=== PATIENT | male | born 1995 | race Two or more races ===

== ENCOUNTER 2018-09-23 13:26 | Emergency (ER) | payer BC ==
[~2018-09-23] VITALS: Ht 177.8 cm; Wt 68.9 kg
[~2018-09-23 13:26] MED LIST: MARIJUANA
[2018-09-23 14:25] LABS: MEAN CORPUSCULAR HEMOGLOBIN 30.3 pg (27.5-34.5); MEAN CORPUSCULAR HGB CONC 33.2 g/dL (33.2-36.2); MEAN PLATELET VOLUME 7.6 fL (7.4-10.4); PLATELET COUNT 368 x10^3/uL (130-400); RED BLOOD COUNT 5.65 x10^6/uL (4.38-5.82); RED CELL DISTRIBUTION WIDTH 12.9 % (9.4-14.8)
[2018-09-23 14:29] LABS: ALANINE AMINOTRANSFERASE 22 U/L (12-78); ALBUMIN 4.8 g/dL (3.4-5.0); ANION GAP 6 mmol/L (5-15); CALCIUM 9.7 mg/dL (8.5-10.1); CHLORIDE 106 mmol/L (98-107)
[2018-09-23 14:31] LABS: ALKALINE PHOSPHATASE 81 U/L (45-117); TOTAL PROTEIN 8.4 g/dL (6.4-8.2)
--- NOTE | 2018-09-23 15:02 | NUR ---
PT BROUGHT BACK FROM THE LOBBY
[2018-09-23 15:03] LABS: MD YES
[2018-09-23 15:08] LABS: BAND#(MANUAL) 0.51 x10^3/uL; BANDS%(MANUAL) 3 % (0-7); LYMPHS% (MANUAL) 7 % (22-44); MONOS#(MANUAL) 0.51 x10^3/uL (0.3-2.7); MONOS% (MANUAL) 3 % (2-9); SEG#(MANUAL) 14.88 x10^3/uL (1.8-6.8); SEGS% (MANUAL) 87 % (42-75)
[2018-09-23 15:10] LABS: <PLATELET ESTIMATE> ADEQUATE; <PLT MORPHOLOGY> NORMAL PLT MORPH; <RBC MORPHOLOGY> NORMAL
[2018-09-23 15:28] LABS: MICROSCOPIC AUTO
[2018-09-23 15:29] LABS: CULTURE INDICATED? NO
[2018-09-23] MEDS ORDERED: OMNIPAQUE 350 MG/ML, 100ML BOTTLE ONE (15:59)
[2018-09-23] MEDS ORDERED: ONDANSETRON ODT 4 MG ONE (16:07)
--- NOTE | 2018-09-23 16:12 | NUR ---
DR VERDUGO AT BEDSIDE
--- NOTE | 2018-09-23 16:17 | NUR ---
PT GIVEN WATER FOR PO CHALLENGE
[2018-09-23] MEDS ORDERED: ONDANSETRON ODT 4 MG PO ONE (16:30)
--- NOTE | 2018-09-23 16:40 | NUR ---
PT TOLERATING PO CHALLENGE. DR VERDUGO NOTIFIED
[2018-09-23 16:41] VITALS: BP 122/63
== END 2018-09-23 17:06 | disposition home or self-care (01) ==
LOC: ED 16:45
DX: R10.31 Right lower quadrant pain (principal); R11.2 Nausea with vomiting, unspecified; R19.7 Diarrhea, unspecified; F41.1 Generalized anxiety disorder; F32.9 Major depressive disorder, single episode, unspecified
CPT/HCPCS: 36415; 74177; 80053; 81001; 83690; 85025; 99284; Q0162; Q9967